=== PATIENT | female | born 1985 | race Caucasian/White ===

== ENCOUNTER → 2021-05-31 | Day surgery (SDC) | payer BC, OTHER ==
[~2021-05-31] VITALS: Ht 167.6 cm; Wt 64.0 kg
[~2021-05-31] MED LIST: IBUPROFEN 200200 M1 PO
[2021-05-31 11:59] VITALS: BP 126/69
[2021-05-31 15:33] VITALS: BP 126/69
--- NOTE | 2021-05-31 21:21 | O ---
[address] [address] OPERATIVE REPORT Name: ALANNA DUGAN Room #: REG [facility].#: [id number] Admission: 05/31/21 Attend Phys: Abran Silverio MD Discharge: Date of : 81 Report #: [id number] THIS REPORT FOR: cc: Physician not on staff Physician not on staff Abran Silverio MD ~ DATE OF SERVICE: 05/31/2021 SERVICE: Orthopedics. FACILITY: [facility]. SURGEON: Abran Silverio MD OUTBOUND SALES PROFESSIONAL: Cathy Hernandez NP INDICATIONS FOR OUTBOUND SALES PROFESSIONAL: Extremity positioning, suture management, arthroscope management, assistance with repair. PREOPERATIVE DIAGNOSES: 1. Right hip pain. 2. Right hip femoral acetabular impingement. 3. Probable right hip labral tear. POSTOPERATIVE DIAGNOSES: 1. Right hip pain. 2. Right hip femoral acetabular impingement. 3. Right hip labral tear. PROCEDURE PERFORMED: 1. Right hip arthroscopic labral repair. 2. Right hip arthroscopic Cam osteochondroplasty. 3. Right hip arthroscopic subspine decompression. COMPLICATIONS: None. DRAINS: None. SPECIMENS: None. ANESTHESIA: General with regional. FINDINGS: 1. Partial thickness anterior labral tear at the chondral labral junction with lateral extending chondral wave sign treated with Harmony CinchLock suture anchor x2. [address] [address] OPERATIVE REPORT Name: ALANNA DUGAN Room #: REG [facility] Ronak#: [id number] Admission: 05/31/21 Attend Phys: Abran Silverio MD Discharge: Date of : 81 Report #: [id number] 2. 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 3. Prominent anterior inferior iliac spine causing extraarticular subspine impingement requiring additional capsular dissection with cautery and shaver and then subspine decompression with the bur. 4. Capsular repair with #2 Vicryl x4. HISTORY: The patient is a 35-year-old female who is an avid fitness participant and has had persistent and progressive left hip pain that worsened approximately a year ago with the of her child. She had tried conservative treatments to include rest, activity modifications, physical therapy, oral medicines, intraarticular injection and modalities, all of these were insufficient. She had a temporary pain relief with intra-articular injection, but not sustained. She had physical examination consistent with femoral acetabular joint decreased internal rotation and pain. She had give way symptoms in the hip and x-rays were consistent with a femoral acetabular impingement. She had an alpha angle approximately 60 degrees, Tonnis grade is 0, indicating no arthritis. There was a prominent anterior inferior iliac spine on the false profile x-ray with a small crossover sign. She was indicated for surgical treatment. MRI showed intrasubstance signal and it appeared that it was consistent with labral tear, but there was believed to be some uncertainty per the radiologist. Findings were most consistent with labral tear. Risks, benefits, alternatives and indications for surgery discussed with her in detail. Risks include but not limited to pain, bleeding, infection, injuring nerves or blood vessels, persistent pain despite surgical intervention, failure of any repairs, progression of preexisting chondral injury, stiffness, need for further surgery as well as complications related to anesthesia. Despite the risks, she wished to proceed. PROCEDURE IN DETAIL: After right lower extremity was correctly identified in the preoperative holding area as the operative extremity, the patient underwent regional nerve block. She was then taken to the operating room where general anesthesia was induced without complications. She was padded appropriately. Prophylactic antibiotics were administered at appropriate time, right lower extremity was then prepped and draped in standard sterile fashion. General anesthesia was induced without complication. She was padded appropriately. Prophylactic antibiotics were administered at appropriate time. C-arm was used to identify the extent of the Cam deformity in order to map out the proximal femoral neck anatomy right hip was then prepped and draped in standard sterile fashion. Timeout procedure performed. Traction was applied. Standard anterolateral viewing portal was established followed by anteromedial working portal. Diagnostic arthroscopy revealed the above findings. Overall, the articular cartilage was quite healthy. There was synovitis in the hip as well as capsular erythema. This will be the indication for continuous passive motion machine usage postoperatively in order to reduce the risk of scarring and [address] [address] OPERATIVE REPORT Name: ALANNA DUGAN Room #: REG [facility] Pauline.#: [id number] Admission: 05/31/21 Attend Phys: Abran Silverio MD Discharge: Date of : 81 Report #: [id number] adhesions as these can be reasons for reoperation in this patient population. Transverse capsulotomy was performed and then the capsule was reflected off the dorsal side of the labrum allowing access to the acetabular side. The anterior inferior iliac spine was low lying and sitting adjacent to the anterior labrum was isolated and dissected with the cautery and the shaver, preserving capsular tissue and then the bur was used to perform a subspine decompression in standard fashion. Bur was then used to abrade the acetabular rim to create a fresh bleeding surface for labral repair. There was a partial thickness labral tear and the chondral wave sign was unstable more peripherally Nivia CinchLock suture anchor x2 were placed through the anteromedial portal and cerclage sutures, providing good compression and denominational of the anatomic position of the labrum and instability of the cartilage and the labrum. Traction was let down, hip was flexed up. Attention was turned towards the peripheral compartment. The transverse capsulotomy was extended down the neck in a T fashion and the bur was used to perform a Cam osteochondroplasty in the typical fashion. I removed the instruments, brought C-arm in and assessed the resection, was happy with the appearance of the resection. At this point, placed instruments back in the hip and then closed the T-shaped capsulotomy with a total of four #2 Vicryl sutures. Instruments were removed. Portal sites were closed. Sterile dressing was applied. The patient was awakened from anesthesia and taken to recovery room in stable condition. There were no complications. All counts were recorded as correct. <ELECTRONICALLY SIGNED> By: Abran Silverio MD 05/31/212120 [id number] Abran Silverio MD /nt
== END | disposition home or self-care (01) ==
LOC: OR 09:02
PROVIDERS: ATTEND Orthopaedic Surgery Sports Medicine
DX: M25.551 Pain in right hip (principal); M25.851 Other specified joint disorders, right hip; S73.101A Unspecified sprain of right hip, initial encounter; Z98.890 Other specified postprocedural states; Z79.899 Other long term (current) drug therapy; Z20.822 Contact with and (suspected) exposure to COVID-19; Z88.2 Allergy status to sulfonamides; X58.XXXA Exposure to other specified factors, initial encounter; Y93.89 Activity, other specified; Y92.89 Other specified places as the place of occurrence of the external cause; Y99.8 Other external cause status
CPT/HCPCS: 50010; 50101; 50386; 51538; 52001; 52282; 52304; 52313; 56524; 56527; 57092; 57103; 58273; 58274; 58557; 58558; 58559; 58560; 58561; 58562; 58563; 58564; 58608; 62110; 62900; 70005